=== PATIENT | male | born 1985 | race Two or more races ===

== ENCOUNTER 2021-11-05 02:37 | Emergency (ER) | payer SELFPAY ==
[~2021-11-05] VITALS: Ht 177.8 cm; Wt 86.0 kg
[2021-11-05 02:42] VITALS: BP 140/90
[2021-11-05 02:57] LABS: HEMATOCRIT. 38.7 % (42.0-52.0); HEMOGLOBIN. 13.1 g/dL (14.0-18.0); LYMPHOCYTES % 50.7 % (20.0-50.0); MEAN CORPUSCULAR HEMOGLOBIN 32.5 pg (28.0-32.0); MEAN CORPUSCULAR VOLUME 95.7 fL (80.0-94.0); MEAN PLATELET VOLUME 8.3 fl (7.4-10.4); NEUTROPHILS % 36.6 % (40.0-76.0); PLATELET 208 x1000/uL (130-400); RED BLOOD CELL COUNT 4.04 mill/uL (4.7-6.1); RED CELL DISTRIBUTION WIDTH 13.1 % (11.6-14.6)
[2021-11-05 02:58] LABS: BASOPHILS % 0.4 % (0.0-2.0); EOSINOPHILS % 2.3 % (0.0-5.0)
[2021-11-05 03:05] LABS: CHLORIDE 108 mEq/L (98-107)
[2021-11-05 03:13] LABS: ETHANOL BLOOD 210 mg/dL
== END 2021-11-05 05:29 | disposition home or self-care (01) ==
LOC: ER 02:37
DX: F10.129 Alcohol abuse with intoxication, unspecified (principal); Y90.7 Blood alcohol level of 200-239 mg/100 ml
CPT/HCPCS: 36415; 80053; 80320; 82962; 85025; 99283; G0480